=== PATIENT | male | born 1965 | race American Indian/Alaskan Native ===

== ENCOUNTER 2017-05-21 21:02 | Emergency (ER) | payer BC, OTHER ==
[2017-05-21 22:15] LABS: Bilirubin,Urine NEG (Negative); Blood,Urine NEG (Negative); Ketones,Urine NEG (Negative); Leukocyte Esterase,Urine NEG (Negative); Mucus,Urine FEW /HPF; Nitrite,Urine NEG (Negative); Protein,Urine <15 mg/dL mg/dL (Negative); RBC,Urine < 1.0 /HPF (0.0-6.0); Urobilinogen,Urine < 2.0 mg/dL (<2.0); WBC,Urine < 1.0 /HPF (0.0-6.0)
--- NOTE | 2017-05-21 22:44 | Emergency Department Report ---
HPI - General Chief Complaint: Urogenital-Male Time Seen by Provider: 05/21/17 22:36 - HPI HPI: Patient is a 52-year-old male with a history of hypertension controlled with medication history of herpes simplex virus who presents to ED complaining of penile lesions that in her past 5 days. Patient states he recognizes when he is about again outbreak, so he started taking an Valtrex and has been taking Lasix for the past 5 days with no improvement. Patient states his pain is has lesions that are burning, aching, with flexion. Patient denies recent sexual activity, scrotum swelling or pain, pain with urination, penile discharge ED Past Medical Hx - Past Medical History Previous Medical History?: Yes Hx Hypertension: Yes Additional medical history: Herpes - Social History Smoking Status: Current Every Day Smoker - Medications Home Medications: Home Medications Medication Instructions Recorded Confirmed Last Taken Type Acyclovir [Zovirax Tab] 800 mg PO Q12H #20 tab 05/22/17 Unknown Rx Acyclovir/Hydrocortisone [Xerese 1 applicatio TP 5XD #1 tube 05/22/17 Unknown Rx 5%-1% Cream] Clotrimazole/Betamethasone Dip 1 applicatio TP BID #120 gm 05/22/17 Unknown Rx [Clotrimazole-Betamethasone Crm] hydrOXYzine HCL [Atarax] 25 mg PO ONCE PRN #16 tablet 05/22/17 Unknown Rx predniSONE [Deltasone] 20 mg PO QDAY #15 tab 05/22/17 Unknown Rx ED Review of Systems ROS: Stated complaint: GROIN SWELLING/ITCHING/DRAINAGE Other details as noted in HPI Constitutional: denies: chills, fever Eyes: denies: eye pain, eye discharge, vision change ENT: denies: ear pain, throat pain Respiratory: denies: cough, shortness of breath, wheezing Cardiovascular: denies: chest pain, palpitations Endocrine: no symptoms reported Gastrointestinal: denies: abdominal pain, nausea, diarrhea Genitourinary: other (lesions). denies: urgency, dysuria, frequency, hematuria , discharge, testicular pain, testicular mass Musculoskeletal: denies: back pain, joint swelling, arthralgia Skin: denies: rash, lesions Neurological: denies: headache, weakness, paresthesias Psychiatric: denies: anxiety, depression Hematological/Lymphatic: denies: easy bleeding, easy bruising Physical Exam - Physical Exam Vital Signs: Vital Signs 05/21/17 21:38 Temperature 98.3 F Pulse Rate 88 Respiratory 20 Rate Blood Pressure 143/87 O2 Sat by Pulse 99 Oximetry Physical Exam: GENERAL: Alert and oriented x3, no apparent distress, Normal Gait, atraumatic. HEAD: Head is normocephalic and a-traumatic. EYES: Extra ocular muscles are intact. Pupils are equal, round, and reactive to light and accommodation. LUNGS: Symetrical with respiration, No wheezing, no rales or crackles, CTAB. HEART: S1, S2 present, regular rate and rhythm without murmur, no rubs, no gallops. Non tender to palpation ABDOMEN: No organomegaly was noted,Positive bowel sounds, soft, and non- distended. . Nontender to palpation on all Quadrants, NO CVA tenderness. BACK: Full range of motion, no spinal tenderness, nontender to palpation. UROGENITAL: Alert, generalized, tender to palpation lesions on penis and scrotum ,No scrotal mass, Scrotum non tender to palpation bilaterally, no hernia , or penile discharge. SKIN: Warm and dry, No lesions, No ulceration or induration present. ED Course Vital Signs 05/21/17 21:38 Temperature 98.3 F Pulse Rate 88 Respiratory 20 Rate Blood Pressure 143/87 O2 Sat by Pulse 99 Oximetry ED Medical Decision Making - Medical Decision Making 52-year-old male presents with genital lesions ED course: Patient received Benadryl and prednisone in ED Patient was tested for gonorrhea and Chlamydia cultures are sent Urinalysis shows no signs of sexually transmitted infection or bacterial infection Discussed the patient follow up with primary care physician Discussed his medication as prescribed Vital signs are normal patient is in no acute distress. Discussed patient before the symptoms can't return to ED otherwise follow-up with her department for further STD testing Critical care attestation.: If time is entered above; I have spent that time in minutes in the direct care of this critically ill patient, excluding procedure time. ED Disposition Clinical Impression: HSV (herpes simplex virus) anogenital infection, Male genital lesion Genital herpes simplex Qualifiers: Herpes simplex infection site: penis Qualified Code(s): A60.01 - Herpesviral infection of penis Disposition: TO HOME OR SELFCARE Is pt being admited?: No Does the pt Need Aspirin: No Condition: Stable Instructions: Genital Herpes Simplex (ED) Prescriptions: Acyclovir [Zovirax Tab] 800 mg PO Q12H #20 tab Acyclovir/Hydrocortisone [Xerese 5%-1% Cream] 1 applicatio TP 5XD #1 tube Clotrimazole/Betamethasone Dip [Clotrimazole-Betamethasone Crm] 1 applicatio TP BID #120 gm hydrOXYzine HCL [Atarax] 25 mg PO ONCE PRN #16 tablet PRN Reason: Itching predniSONE [Deltasone] 20 mg PO QDAY #15 tab Referrals: PRIMARY CARE,MD [Primary Care Provider] - 3-5 Days [facility] [Outside] - [facility] - 3-5 Days [facility] [Outside] - 3-5 Days Forms: Accompanied Note, Work/School Release Form(ED) Time of Disposition: 00:05
[2017-05-21] MEDS ORDERED: BENADRYL PO ONE (23:08)
[2017-05-21] MEDS ORDERED: DELTASONE PO ONE (23:08)
[2017-05-22 00:18] VITALS: BP 139/93
== END 2017-05-22 00:18 | disposition home or self-care (01) ==
LOC: ED 21:02
DX: B00.9 Herpesviral infection, unspecified (principal); N49.9 Inflammatory disorder of unspecified male genital organ; I10 Essential (primary) hypertension; F17.210 Nicotine dependence, cigarettes, uncomplicated
CPT/HCPCS: 81001; 87591; 99283; J7512